=== PATIENT | female | born 1930 | race Caucasian/White ===

== ENCOUNTER 2016-11-16 10:04 | Inpatient (IN) | payer MEDICARE, OTHER ==
--- NOTE | ~2016-11-16 | HP ---
History And Physical [address] [place]. [address] NAME: MELINDA SALDANA : 34 STATUS : ADM IN PAT#: [id number] AGE: 86 ADM/REG DATE : 11/16/16 MR#: [id number] REPORT SERV DATE: 11/17/16 DICTATED BY: CHASTITY HEATH DATE: 11/16/16 REPORT STATUS : Draft TRANSCRIBED BY: MODL DATE: 11/16/16 DATE OF ADMISSION: 11/16/2016 CHIEF COMPLAINT: Right hip pain. HISTORY: An 86-year-old female fell and broke her right hip. She denies any pain or injury elsewhere. She did have a little contusion to her elbow, but no loss of consciousness, shortness of breath, chest pain, etc. ALLERGIES: NONE. MEDICATIONS: See chart. PAST MEDICAL HISTORY: Osteoporosis, arthritis, multiple polyps, anxiety. PAST SURGICAL HISTORY: Colonoscopy in 2008, partial thyroidectomy 2009, cataracts with intraocular lens implants. Thyroid surgery in 2005, she had thyroid cancer with last oral chemo in 2009. SOCIAL HISTORY: She lives with daughter. No cigarettes, alcohol, or illicit drug use. FAMILY HISTORY: No known anesthetic complications. REVIEW OF SYSTEMS: Otherwise negative except as above. PHYSICAL EXAMINATION: GENERAL: She is alert and oriented x3, in no apparent distress. HEENT: Atraumatic, normocephalic. NECK: Supple. CHEST: Symmetric. Nontender. LUNGS: Per AA evaluation. CV: Regular. ABDOMEN: Soft. No mass. EXTREMITIES: Both upper extremities and left lower extremity without acute trauma. Right lower extremity is short and externally rotated. Skin is intact. Compartment supple. 2+ pulses. NEURO: Sensorimotor without deficit. X-RAYS: Displaced right intertrochanteric femur fracture. ASSESSMENT: Displaced right intertrochanteric femur fracture. PLAN: ORIF. Risks, benefits are explained, and the patient wishes to proceed. History And Physical [address] [place]. [address] NAME: MELINDA SALDANA : 34 STATUS : ADM IN PAT#: [id number] AGE: 86 ADM/REG DATE : 11/16/16 MR#: [id number] REPORT SERV DATE: 11/17/16 DICTATED BY: CHASTITY HEATH DATE: 11/16/16 REPORT STATUS : Draft TRANSCRIBED BY: MODL DATE: 11/16/16 WTB/LINDAL Virgie Heath M.D. / [id number] CC: Virgie Heath M.D.
--- NOTE | ~2016-11-16 | DS ---
Discharge Summary [facility] [address] [place]. [address] NAME: MELINDA SALDANA : 34 STATUS : DIS IN PAT#: [id number] AGE: 86 ADM/REG DATE : 11/16/16 MR#: [id number] REPORT SERV DATE: 12/01/16 DICTATED BY: CHASTITY HEATH DATE: 11/30/16 REPORT STATUS : Draft TRANSCRIBED BY: SASHA DATE: 11/30/16 Data Collection from hospitalization DISCHARGE DIAGNOSES: 1. Right intertrochanteric femur fracture. 2. Osteoporosis. 3. Arthritis. 4. Multiple polyps. 5. Anxiety. CONSULTATIONS: None. PROCEDURES PERFORMED: [place]/intertrochanteric femur fracture repair, 11/16/2016. DISCHARGE MEDICATIONS: Colace 100 mg twice a day, Pepcid 20 mg twice a day, ferrous sulfate 300 mg with breakfast and supper, Synthroid 75 mcg every morning, levothyroxine 50 mcg daily, multivitamins one tablet every morning, Coumadin as instructed, Mylanta 30 mL as needed, Dulcolax 15 mg as needed, Flonase nasal spray one spray nasally daily as needed, [place] 7.5/325 one tablet every four hours as needed, milk of magnesia 30 mL as needed, Zofran 4 mg every four hours as needed, MiraLAX powder one packet twice a day as needed. CONDITION AT DISCHARGE: Stable. DISPOSITION: The patient was discharged to [facility] on a regular diet with activities as instructed. She would follow up with me two weeks following discharge. HOSPITAL COURSE: This is an 86-year-old female, who fell and broke her right hip. She denied any pain or injury elsewhere. X-rays had shown displaced right intertrochanteric femur fracture. Treatment options were discussed and it was elected to proceed with surgical intervention. She was admitted to the hospital at this time for further evaluation and treatment. Upon admission, she was taken to the operating room, where she underwent the above-mentioned procedure. She tolerated this well and there were no complications. On postop day #1, she said she was feeling better. Her dressings were clean, dry, and intact. She had normal distal pulses. She was evaluated by Occupational and Physical Therapy. She continued to progress. Discharge planning was performed. She did complain of some weakness and fatigue. She had some dizziness when she would try to stand back up. She was transfused one unit of packed red blood cells. On 11/19/2016, she was alert and cooperative. Discharge planning had been performed. She had good pain control. Discharge instructions were given. Due to her improved and stable condition, she was discharged to [facility] with the above-stated instructions. Information collected by: Wilma Clifford I submit the above information as my discharge summary. Discharge Summary [address] [address] NAME: MELINAD SALDANA : 32 STATUS : DIS IN PAT#: [id number] AGE: 86 ADM/REG DATE : 11/16/16 MR#: [id number] REPORT SERV DATE: 12/01/16 DICTATED BY: CHASTITY HEATH DATE: 11/30/16 REPORT STATUS : Draft TRANSCRIBED BY: SASHA DATE: 11/30/16 TG/SASHA Virgie Heath M.D. / [id number] CC: Jonathan Rinaldi [facility]
--- NOTE | ~2016-11-16 | OP ---
Record Of Operation [facility] [address] [place]. [address] NAME: MELINDA SALDANA : 34 STATUS : ADM IN PAT#: [id number] AGE: 86 ADM/REG DATE : 11/16/16 MR#: [id number] REPORT SERV DATE: 11/18/16 DICTATED BY: CHASTITY HEATH DATE: 11/18/16 REPORT STATUS : Draft TRANSCRIBED BY: MODAneta DATE: 11/18/16 DATE OF PROCEDURE: 11/16/2016 PREOPERATIVE DIAGNOSIS: Right intertrochanteric femur fracture. POSTOPERATIVE DIAGNOSIS: Right intertrochanteric femur fracture. OPERATION: [place]/intertrochanteric femur fracture. SIDE: Right. BUNDLE TIER: ESTIMATED BLOOD LOSS: About 100 mL. TOURNIQUET TIME: None. COMPLICATIONS: None. SPECIMENS: None. ANESTHESIA: See chart. PROCEDURE: The patient was taken to the preoperative holding area. The patient was appropriately identified, marked and the consent form carefully checked. The patient was taken then to the operating room and anesthetic was induced per the anesthesiologist. The patient was carefully positioned, carefully padded, prepped and draped on the fracture table. Prior to the surgical prep a closed reduction was obtained by closed method using fluoroscopic guidance. The patient was then prepped and draped in the usual sterile fashion. Using fluoroscopic guidance, a straight lateral incision was made. This was followed by electrocautery through the fat, the IT band and the vastus, staying towards the posterior portion of the lateral vastus to decrease the amount of muscle tissue that was cut through. Meticulous hemostasis was obtained with electrocautery. Lateral femoral cortex was exposed further with periosteal elevator and appropriate retraction. A guide was then used to place a guidewire basically in the center of the head on AP and lateral x-ray views. This was followed by depth gauge and then triple reamer. Lag screw was placed over the guidewire. The sliding plate was then placed and impacted and checked to be sure it was down snug. The plate was held with a plate clamp distally and reduction again checked. The screw holes in the plate were then filled with screws in the standard fashion with drill depth gauge and then self-tapping screw placement. The screws were then tightened by hand. Record Of Operation [facility] [address] [place]. [address] NAME: MELINDA SALDANA : 32 STATUS : ADM IN PAT#: [id number] AGE: 86 ADM/REG DATE : 11/16/16 MR#: [id number] REPORT SERV DATE: 11/18/16 DICTATED BY: CHASTITY HEATH DATE: 11/18/16 REPORT STATUS : Draft TRANSCRIBED BY: MODAneta DATE: 11/18/16 All traction was released and the compression screw placed and tightened. Again x-ray views were checked to ascertain reduction and screw length. The wound was then irrigated and closed with sutures in the vastus. A medium drain was placed distally anteriorly between the vastus and the IT band, then sutured on the IT band, 2-0 subcutaneous, and donna in the skin. Wound dressed sterilely. The patient was awakened and carefully transferred to the bed and transferred to the recovery room without incident. COUNTS: Correct. WTB/LINDAL Virgie Heath M.D. / [id number] CC: Jonathan Rinaldi Steven R
[~2016-11-16 10:04] MED LIST: CALTRA600D PO; FLONASE; FLONASE NAS; LEVOTHYROXIN50 MCG PO; MULTIPLE VIT PO; SYN075 PO; TESS PO
[2016-11-16 12:45] LABS: INTERNATIONAL NORMAL RATI 1.1 UNITS (-); PARTIAL THROMBO TIME 24.9 SEC (22.5-37.2); PROTIME (NOT ORD) 14.1 SEC (12.0-14.5)
[2016-11-16 12:55] LABS: A/G RATIO 1.1 (0.7-1.9); ALBUMIN 3.3 G/DL (3.5-5.0); BUN (BLOOD UREA NITROGEN) 19 MG/DL (6-23); CALCIUM, SERUM 8.5 MG/DL (8.5-10.4); CHLORIDE, SERUM 109 MMOL/L (96-112); CO2 (CARBON DIOXIDE) 31 MMOL/L (24-34); CREATININE 0.83 MG/DL (0.55-1.02); GFR AFRICAN AMERICAN 75 ML/MIN (>=60); GFR NON AFRICAN AMERICAN 65 ML/MIN (>=60); GLOBULIN 3.1 G/DL (2.5-4.1); GLUCOSE, SERUM 153 MG/DL (60-99); POTASSIUM, SERUM 5.4 MMOL/L (3.5-5.3); PREALBUMIN 18.3 MG/DL (17.0-43.0); SGOT(AST) 14 U/L (5-40); SGPT(ALT) 13 U/L (5-65); SODIUM, SERUM 143 MMOL/L (135-148); TOTAL BILIRUBIN 0.4 MG/DL (0-1.2); TOTAL PROTEIN 6.4 G/DL (6.0-8.5)
[2016-11-16 12:56] LABS: ALKALINE PHOSPHATASE 50 U/L (45-117)
[2016-11-16 13:58] LABS: BASOPHILS 0.1 %; BASOPHILS ABSOLUTE 0.01 10/3/uL (0.0-0.16); EOSINOPHILS 0 %; HEMOGLOBIN 10.8 g/dL (12.0-16.0); IMMATURE GRANULOCYTES 0.2 %; IMMATURE GRANULOCYTES ABSOLUTE 0.02 10/3/uL (0.0-0.11); LYMPHOCYTES 4.4 %; LYMPHOCYTES ABSOLUTE 0.51 10/3/uL (0.67-4.30); MEAN CORPUS HGB CONC 32.1 g/dL (32.0-36.0); MEAN CORPUSCULAR HEMOGLOB 31.7 pg (26.0-34.0); MEAN CORPUSCULAR VOLUME 98.5 fL (80-100); MEAN PLATELET VOLUME 10.2 fL (9.2-13.0); MONOCYTES 3.6 %; MONOCYTES ABSOLUTE 0.42 10/3/uL (0.21-1.20); NEUTROPHILS 91.7 %; NEUTROPHILS ABSOLUTE 10.61 10/3/uL (2.02-8.40); PLATELET COUNT 200 10/3/uL (150-400); RBC DISTRIBUTION WIDTH 13.2 % (12.0-16.0); RED CELL COUNT 3.41 10/6/uL (4.0-5.6); WHITE BLOOD CELLS 11.6 10/3/uL (4.5-10.5)
[2016-11-16 13:59] LABS: HEMATOCRIT 33.6 % (36.0-48.0); MANUAL DIFF NO %
[2016-11-17 05:11] LABS: HEMOGLOBIN 8.8 g/dL (12.0-16.0)
[2016-11-17 05:20] LABS: CALCIUM, SERUM 7.9 MG/DL (8.5-10.4); CHLORIDE, SERUM 107 MMOL/L (96-112); CO2 (CARBON DIOXIDE) 29 MMOL/L (24-34); CREATININE 1.09 MG/DL (0.55-1.02); GFR AFRICAN AMERICAN 54 ML/MIN (>=60); GFR NON AFRICAN AMERICAN 47 ML/MIN (>=60); GLUCOSE, SERUM 155 MG/DL (60-99); INTERNATIONAL NORMAL RATI 1.2 UNITS (-); SODIUM, SERUM 142 MMOL/L (135-148)
[2016-11-17 05:22] LABS: BUN (BLOOD UREA NITROGEN) 26 MG/DL (6-23)
[2016-11-17 05:28] LABS: HEMATOCRIT 26.5 % (36.0-48.0)
[2016-11-18 05:25] LABS: INTERNATIONAL NORMAL RATI 1.3 UNITS (-); PROTIME (NOT ORD) 15.6 SEC (12.0-14.5)
[2016-11-18 05:26] LABS: HEMATOCRIT 20.3 % (36.0-48.0); HEMOGLOBIN 6.8 g/dL (12.0-16.0)
[2016-11-19 04:23] LABS: BASOPHILS 0 %; EOSINOPHILS 0 %; IMMATURE GRANULOCYTES 0.3 %; IMMATURE GRANULOCYTES ABSOLUTE 0.03 10/3/uL (0.0-0.11); LYMPHOCYTES ABSOLUTE 1.22 10/3/uL (0.67-4.30); MEAN CORPUSCULAR HEMOGLOB 31.8 pg (26.0-34.0); MEAN PLATELET VOLUME 10.5 fL (9.2-13.0); MONOCYTES 11.6 %; MONOCYTES ABSOLUTE 1.01 10/3/uL (0.21-1.20); NEUTROPHILS 74.1 %; NEUTROPHILS ABSOLUTE 6.46 10/3/uL (2.02-8.40); PLATELET COUNT 148 10/3/uL (150-400); RBC DISTRIBUTION WIDTH 14.9 % (12.0-16.0); RED CELL COUNT 2.83 10/6/uL (4.0-5.6); WHITE BLOOD CELLS 8.7 10/3/uL (4.5-10.5)
[2016-11-19 04:25] LABS: HEMATOCRIT 26.3 % (36.0-48.0); MANUAL DIFF NO %; MEAN CORPUS HGB CONC 34.2 g/dL (32.0-36.0); MEAN CORPUSCULAR VOLUME 92.9 fL (80-100)
[2016-11-19 04:32] LABS: INTERNATIONAL NORMAL RATI 1.9 UNITS (-)
[2016-11-19 04:34] LABS: PROTIME (NOT ORD) 21.6 SEC (12.0-14.5)
[2016-11-19 04:36] LABS: BUN (BLOOD UREA NITROGEN) 21 MG/DL (6-23); CALCIUM, SERUM 8.2 MG/DL (8.5-10.4); CHLORIDE, SERUM 106 MMOL/L (96-112); CO2 (CARBON DIOXIDE) 28 MMOL/L (24-34); CREATININE 0.67 MG/DL (0.55-1.02); GFR AFRICAN AMERICAN 94 ML/MIN (>=60); GFR NON AFRICAN AMERICAN 81 ML/MIN (>=60); GLUCOSE, SERUM 95 MG/DL (60-99); POTASSIUM, SERUM 4.5 MMOL/L (3.5-5.3); SODIUM, SERUM 142 MMOL/L (135-148)
== END 2016-11-19 13:38 | DRG 481 ==
LOC: 3SO 10:04
PROVIDERS: Specialist
PROC: 0QS804Z Reposition Right Femoral Shaft with Internal Fixation Device, Open Approach (ICD-10-PCS; principal; 2016-11-16 19:45)
PROC: 30233N1 Transfusion of Nonautologous Red Blood Cells into Peripheral Vein, Percutaneous Approach (ICD-10-PCS; 2016-11-18)
DX: S72.001A Fracture of unspecified part of neck of right femur, initial encounter for closed fracture (principal); D62 Acute posthemorrhagic anemia; W18.30XA Fall on same level, unspecified, initial encounter; E03.9 Hypothyroidism, unspecified; Z79.899 Other long term (current) drug therapy
CPT/HCPCS: 36415; 71010; 73502-RT; 76000; 80048; 80053; 81001; 83735; 84134; 84484; 85014; 85018; 85025; 85610; 85730; 86850; 86900; 86901; 86920; 93005; 96374; 96375; 96376; 97162-GP; 97166-GO; 97530-GP; 97535-GO; 99285; A9270-GY; C1713; G8978-CL-GP; G8979-CK-GP; G8987-CL-GO; G8988-CL-GO; G8989-CM-GO; J0461; J0690; J1885; J2270; J2274; J2370; J2405; J2795; J3010; P9016